=== PATIENT | female | born 1940 | race Caucasian/White ===

== ENCOUNTER → 2016-11-10 | Outpatient (CLI) | payer MEDICARE | LOC: HEART CORB 10:00 | DX: C18.8 Malignant neoplasm of overlapping sites of colon (principal); Z79.899 Other long term (current) drug therapy | CPT/HCPCS: 93306 ==

== ENCOUNTER → 2016-11-23 | Outpatient (CLI) | payer MEDICARE | LOC: CT 07:45 | DX: C18.8 Malignant neoplasm of overlapping sites of colon (principal); R59.0 Localized enlarged lymph nodes; R91.8 Other nonspecific abnormal finding of lung field; Z79.899 Other long term (current) drug therapy | CPT/HCPCS: 70491; 71260; J7050; Q9962 ==